=== PATIENT | male | born 2005 | race Caucasian/White ===

== ENCOUNTER 2024-12-13 05:39 | Emergency (ER) | payer OTHER ==
[~2024-12-13] VITALS: Ht 177.8 cm; Wt 64.9 kg
[2024-12-13] MEDS: 0.9%NACL 1000ML 1,000 ML IV ONE (08:00)
[2024-12-13 09:09] LABS: IMMATURE GRANULOCYTE ABSOLUTE 0.02 K/uL (0-1); NUCLEATED RED BLOOD CELLS 0.0 % (0.0-0.19); PLATELET COUNT (AUTO) 235 K/uL (130-400); RED BLOOD CELL COUNT(AUTO) 5.16 MIL/uL (4.50-6.20); RED CELL DISTRIBUTION WIDTH 12.1 % (11.0-15.5); WHITE BLOOD COUNT (AUTO) 8.2 K/uL (4.8-10.8)
[2024-12-13 09:24] LABS: CREATININE 0.9 mg/dL (0.5-1.3); GLOMERULAR FILTR. RATE CALC 125.0 mL/min (>90); GLUCOSE,RANDOM 97.0 mg/dL (70-105); SODIUM SERUM 142.0 mmol/L (136-145); UREA NITROGEN, BLOOD 21.0 mg/dL (7-18)
[2024-12-13 09:30] LABS: ASPARTATE AMINOTRANSFERASE 22.0 U/L (10-37); TOTAL PROTEIN, SERUM 7.8 g/dL (6.0-8.3)
--- NOTE | 2024-12-13 09:52 | HMCIMG ---
EXAM: US Retroperitoneum, Renal. CLINICAL HISTORY: lt flank pain TECHNIQUE: Real-time ultrasound of the retroperitoneum with image documentation. COMPARISON: None provided. FINDINGS: Right Kidney: Measures 10.3 x 4.1 x 4.6 cm. Renal outline is smooth. Corticomedullary differentiation is maintained. No evidence of hydronephrosis or perinephric collection. There is a 9 x 4 mm echogenic calculus in the mid calyx showing posterior acoustic shadowing and twinkling artifact. Left Kidney: Measures 9.4 x 4.7 x 4.9 cm. Renal outline is smooth. Corticomedullary differentiation is preserved. No calculi, hydronephrosis, or perinephric collection seen. Ureters: Not dilated. No visible calculi or masses along the visualized course. Urinary Bladder: Moderately distended with an anechoic lumen. Bladder wall thickness is 5 mm. No intraluminal mass or calculus seen. No diverticula or trabeculation observed. Other Pelvic Structures: No abnormal free fluid in the pelvis. No pelvic mass lesion noted. IMPRESSION: 9 x 4 mm calculus in the mid calyx of the right kidney. No hydronephrosis. /[place]
[2024-12-13] MEDS ORDERED: ONDA-243 PO (10:31)
--- NOTE | 2024-12-13 10:32 | ERN ---
ED Note History of Present Illness Stated Complaint: KIDNEY STONES Chief Complaint: Abdominal Pain Time Seen by MD: 07:46 Dictation: 19 y/o M with left flank pain on/off over the past few days, seen at other ER and had CT scan that showed 3 mm stone on left side with mild hydro. No pain now Past Medical History Past Medical History: No Pertinent History Surgical History: Other Surgical History Other: EAR TUBES Review of System Dictation Constitutional: Negative for fever,chills, and weight loss Eyes: Negative for injury, pain,redness, and discharge ENT: Negative for injury,pain or swelling Cardiovascular: Negative for chest pain, palpitations, and edema Respiratory: Negative for shortness of breath, cough, and wheezing, Abdomen/GI:per HPi : Negative for injury, bleeding and discharge MS/Extremity: Negative for injury and deformity Skin: Negative for rash, and discoloration Neuro: Negative for headache, weakness, numbness, tingling, and seizure Psych: Negative for suicide ideation, homicidal ideation, and hallucinations Initial Vital Sign VS Vital Signs Date Time Temp Pulse Resp B/P (MAP) Pulse Ox O2 Delivery O2 Flow Rate FiO2 12/13/24 06:09 98.1 70 16 119/71 96 Room Air 0 Physical Exam Dictation General: awake, alert, NAD Head/Face: Normocephalic, atraumatic Eyes: PERRL, EOMI, vision at baseline ENT: oral cavity clear, TMs clear, no signs of infection Neck: Trachea midline, supple, no nuchal rigidity Cardiovascular: RRR, normal S1/S2, No MRGs, no JVD Respiratory: CTAB, no respiratory distress, No rales or wheezes Abdomen: Soft, non-tender, non-distended, normal bowel sounds, no guarding or re bound. Skin: Warm, dry, normal turgor, no rash MS/Extremity: Pulses equal, no cyanosis, neurovascular intact, FROM Neuro: COAx4, GCS 15, strength 5/5, CN 2-12 intact, normal cerebellar exam, normal gait, Psych: Normal behavior, mood, and affect normal Results (Laboratory/Radiology) Laboratory/Radiology Laboratory Tests Test 12/13/24 08:58 White Blood Count 8.2 K/uL (4.8-10.8) Red Blood Count 5.16 MIL/uL (4.50-6.20) Hemoglobin 16.1 g/dL (14.0-18.0) Hematocrit 45.9 % (42-54) Mean Corpuscular Volume 89.0 fL (80-100) Mean Corpuscular Hemoglobin 31.2 pg (27.0-33.0) Mean Corpuscular Hemoglobin Concent 35.1 g/dL (32.0-36.0) Red Cell Distribution Width 12.1 % (11.0-15.5) Platelet Count 235 K/uL (130-400) Mean Platelet Volume 10.2 fL (7.5-10.5) Immature Granulocyte % (Auto) 0.2 % (0-1) Neutrophils (%) (Auto) 60.1 % (40.0-77.0) Lymphocytes (%) (Auto) 28.4 % (21.0-51.0) Monocytes (%) (Auto) 10.4 % (3.0-13.0) Eosinophils (%) (Auto) 0.5 % (0.0-8.0) Basophils (%) (Auto) 0.4 % (0.0-5.0) Neutrophils # (Auto) 4.9 K/uL (1.8-7.7) Lymphocytes # (Auto) 2.3 K/uL (1.0-4.8) Monocytes # (Auto) 0.9 K/uL (0.1-1.0) Eosinophils # (Auto) 0.04 K/uL (0.00-0.70) Basophils # (Auto) 0.03 K/uL (0.00-0.20) Absolute Immature Granulocyte (auto 0.02 K/uL (0-1) Nucleated Red Blood Cells 0.0 % (0.0-0.19) Sodium Level 142 mmol/L (136-145) Potassium Level 4.6 mmol/L (3.5-5.1) Chloride Level 104 mmol/L (101-111) Carbon Dioxide Level 28 mmol/L (21-32) Blood Urea Nitrogen 21 mg/dL (7-18) H Creatinine 0.9 mg/dL (0.5-1.3) Glomerular Filtration Rate Calc 125 mL/min (>90) Random Glucose 97 mg/dL (70-105) Total Calcium 9.6 mg/dL (8.5-10.1) Total Bilirubin 0.7 mg/dL (0.2-1.0) Direct Bilirubin 0.1 mg/dL (0.0-0.3) Aspartate Amino Transf (AST/SGOT) 22 U/L (10-37) Alanine Aminotransferase (ALT/SGPT) 41 U/L (12-78) Alkaline Phosphatase 77 U/L (50-136) Total Protein 7.8 g/dL (6.0-8.3) Albumin 4.4 g/dL (3.5-5.0) Labs Reviewed?: Yes Ultrasound Comment: no hydro, no active stones ED Course ED Course Orders Procedure Category Date Status Time Basic Metabolic Panel LAB 12/13/24 Complete 07:46 Cbc With Differential LAB 12/13/24 Complete 07:46 Hepatic Function Panel LAB 12/13/24 Complete 07:46 Ondansetron 4mg Inj PHA 12/13/24 Complete (Zofran 4mg Inj) 08:00 Ketorolac PHA 12/13/24 Complete Tromethamine 15mg/Ml 08:00 0.9%Nacl 1000ml (Ns PHA 12/13/24 Complete 1000ml) 08:00 Us Renal Sonogram US 12/13/24 Resulted 08:04 Current Medications Medications (Trade) Dose Ordered Sig/Juany Route PRN Reason Start Time Stop Time Status Last Admin Dose Admin Ketorolac Tromethamine (toRADol) 15 mg ONCE ONCE IV 12/13/24 08:00 12/13/24 10:19 DC Ondansetron HCl (zoFRAN 4MG INJ) 4 mg ONCE ONCE IVP 12/13/24 08:00 12/13/24 10:19 DC Sodium Chloride 1,000 ml @ 0 mls/hr ONCE ONCE IV 12/13/24 08:00 12/13/24 10:19 DC Vital Signs Date Time Temp Pulse Resp B/P (MAP) Pulse Ox O2 Delivery O2 Flow Rate FiO2 12/13/24 06:09 98.1 70 16 119/71 96 Room Air 0 Medical Decision Making MDM MDM: Differential diagnosis:renal colic Rationale: Tests considered and ordered secondary to shared decision making include: Previous outside records reviewed: Old ER visits. Risk of complication and/or morbidity or mortality of patient management: None Medications-Per medication reconciliation Need for hospitalization: Patient does not meet criteria for hospitalization. Need for emergency major/minor surgery: No There are no social concerns with this patient. Prescription drug management Prescriptions will include symptomatic care Patient's prior external medical records from other ER visits were reviewed by me as indicated. Prior testing and results from previous visits were reviewed. Prior tests were taken into account with medical decision making and resource utilization, independent historian/historians were used to obtain complete medical history. I independently interpreted the test that were performed, results were reviewed by me and considered findings on radiology if ordered. Medical management and examination interpretation discussions were had by me with other qualified healthcare professionals as indicated for the patient's care. DX & DISP Disposition: Discharge Departure Impression: Primary Impression: Renal colic on left side Condition: Stable Scripts Ondansetron (Ondansetron Odt) 4 Mg Tab.rapdis 4 MG PO BID for vomiting for 5 Days, #10 TAB Prov: KENA WEI MD 12/13/24 Referrals: SELF,REFERRAL (PCP) KENA WEI MD Dec 13, 2024 10:32
[2024-12-13 11:27] VITALS: BP 119/75; PULSE 70; RESP 16; TEMP 98; O2SAT 96
--- NOTE | 2024-12-13 11:45 | NUR ---
PT WILL BE D/C AFTER FLUIDS, AWARE
[2024-12-13 11:51] LABS: APPEARANCE,URINE CLEAR (CLEAR); GLUCOSE, URINE (UA) NEGATIVE (NEGATIVE); LEUKOCYTE ESTERASE ,URINE NEGATIVE Leu/uL (NEGATIVE); NITRATE,URINE NEGATIVE (NEGATIVE); OCCULT BLOOD,URINE MODERATE (NEGATIVE)
[2024-12-13 11:54] LABS: ADD UA MICROSCOPIC YES; SQUAMOUS EPITHELIAL CELL,UR RARE /HPF (0-2)
== END 2024-12-13 12:17 | disposition home or self-care (01) ==
LOC: EDH 05:39
DX: N23 Unspecified renal colic (principal)
CPT/HCPCS: 36415; 76770; 80048; 80076; 81001; 85025; 87086; 96361; 96374; 96375; 99285; J1885; J2405; J7030